=== PATIENT | female | born 1995 | race Caucasian/White ===

== ENCOUNTER 2016-11-16 18:21 | Emergency (ER) | payer MEDICAID, OTHER ==
[~2016-11-16] VITALS: Ht 160 cm; Wt 77.0 kg
[2016-11-16 18:37] VITALS: BP 126/77
[2016-11-16 20:35] LABS: BASOPHILS % 0.8 % (0.0-2.0); EOSINOPHILS % 0.5 % (0.0-5.0); HEMATOCRIT. 41.6 % (36.0-48.0); HEMOGLOBIN. 14.8 g/dL (12.0-16.0); LYMPHOCYTES % 25.8 % (20.0-50.0); MEAN CORPUSCULAR HEMOGLOBIN 30.3 pg (28.0-32.0); MEAN CORPUSCULAR VOLUME 85.1 fL (81.0-99.0); MEAN PLATELET VOLUME 9.6 fl (7.4-10.4); MONOCYTES % 7.1 % (2.0-8.0); NEUTROPHILS % 65.8 % (40.0-76.0); PLATELET 242 x1000/uL (130-400); RED BLOOD CELL COUNT 4.89 mill/uL (4.2-5.4); RED CELL DISTRIBUTION WIDTH 13.1 % (11.6-14.6)
[2016-11-16 20:40] LABS: CHLORIDE 105 mEq/L (98-107)
[2016-11-16 20:49] LABS: CARBON DIOXIDE 21 mEq/L (21-32); ETHANOL BLOOD < 10 mg/dL
== END 2016-11-16 20:49 | disposition left against medical advice (07) ==
LOC: ER 18:32
DX: F41.9 Anxiety disorder, unspecified (principal); E86.0 Dehydration; F15.10 Other stimulant abuse, uncomplicated; F17.210 Nicotine dependence, cigarettes, uncomplicated; Z98.890 Other specified postprocedural states
CPT/HCPCS: 36415; 80053; 80307; 80329; 85025; 99284; G0482

== ENCOUNTER 2020-12-26 14:56 | Emergency (ER) | payer MEDICAID ==
[~2020-12-26] VITALS: Ht 160 cm; Wt 59.0 kg
[2020-12-26] MEDS ORDERED: ACETAMINOPHEN 325MG TABLET PO STA (18:18)
[2020-12-26 18:53] VITALS: BP 106/88
[2020-12-26 19:38] LABS: COLOR URINE YELLOW (YELLOW); PH URINE 5.5 (4.5-8.0); PROTEIN URINE NEGATIVE (NEGATIVE); SPECIFIC GRAVITY URINE 1.022 (1.005-1.030)
[2020-12-26 19:39] LABS: CLARITY URINE CLEAR (CLEAR); KETONES URINE NEGATIVE (NEGATIVE); NITRITE URINE NEGATIVE (NEGATIVE); OCCULT BLOOD URINE NEGATIVE (NEGATIVE); UROBILINOGEN URINE 0.2 E.U./dL (0.2-1.0)
[2020-12-26 19:40] LABS: LEUKOCYTE ESTERASE URINE TRACE (NEGATIVE)
[2020-12-26 20:05] LABS: BASOPHILS % 0.5 % (0.0-2.0); EOSINOPHILS % 1.1 % (0.0-5.0); HEMATOCRIT. 33.7 % (36.0-48.0); HEMOGLOBIN. 11.5 g/dL (12.0-16.0); LYMPHOCYTES % 25.1 % (20.0-50.0); MEAN CORPUSCULAR HEMOGLOBIN 29.8 pg (28.0-32.0); MEAN CORPUSCULAR VOLUME 87.9 fL (81.0-99.0); MEAN PLATELET VOLUME 9.3 fl (7.4-10.4); MONOCYTES % 4.8 % (2.0-8.0); NEUTROPHILS % 68.5 % (40.0-76.0); PLATELET 261 x1000/uL (130-400); RED BLOOD CELL COUNT 3.84 mill/uL (4.2-5.4); RED CELL DISTRIBUTION WIDTH 14.2 % (11.6-14.6)
[2020-12-26 20:09] LABS: CHLORIDE 107 mEq/L (98-107)
[2020-12-26] MEDS ORDERED: LIDOCAINE HCL 1% 20ML VIAL (Pyxis) INJ INFIL ONE (20:15)
[2020-12-26] MEDS ORDERED: CEFTRIAXONE SODIUM 500 MG/VIAL IM ONE (20:15)
[2020-12-26] MEDS ORDERED: METRONIDAZOLE 500MG TABLET PO ONE (20:15)
[2020-12-26] MEDS ORDERED: AZITHROMYCIN 500 MG TABLET PO ONE (20:15)
[2020-12-26 20:32] LABS: B-HCG QUANTITATIVE 62538 mIU/mL (<3)
[2020-12-26] MEDS ORDERED: NITR-87 MT (21:05)
== END 2020-12-26 20:58 | disposition left against medical advice (07) ==
LOC: ER 14:56
DX: O26.891 Other specified pregnancy related conditions, first trimester (principal); O23.31 Infections of other parts of urinary tract in pregnancy, first trimester; Z3A.08 8 weeks gestation of pregnancy; D64.9 Anemia, unspecified; F41.9 Anxiety disorder, unspecified; F15.10 Other stimulant abuse, uncomplicated
CPT/HCPCS: 36415; 76801; 80053; 81003; 81025; 84702; 85025; 86850; 86900; 86901; 87077; 87086; 87186; 96372; 99284; J0696; J3490